=== PATIENT | male | born 1990 | race Caucasian/White ===

== ENCOUNTER → 2019-06-21 | Outpatient (CLI) | payer BC | LOC: COL.RAD 10:53 | DX: R79.89 Other specified abnormal findings of blood chemistry (principal) ==

== ENCOUNTER 2020-01-10 08:12 | Emergency (ER) | payer BC ==
[~2020-01-10] VITALS: Ht 182.9 cm; Wt 79.5 kg
[2020-01-10 08:16] VITALS: BP 145/95; TEMP 96.7
[2020-01-10] MEDS ORDERED: MULTI VITAMINS1 TAB PO (09:07)
[2020-01-10] MEDS ORDERED: CLARITIN 1010 MG/TAB PO (09:08)
[2020-01-10] MEDS ORDERED: FIBER0.52 GM PO (09:08)
[2020-01-10] MEDS ORDERED: MEDROL 4MG DOSPA4 MG PO (09:31)
[2020-01-10 10:00] VITALS: PULSE 81
== END 2020-01-10 10:00 | disposition home or self-care (01) ==
LOC: COL.ER 08:12
DX: R07.81 Pleurodynia (principal)
CPT/HCPCS: J1885; J7030